=== PATIENT | female | born 1955 | race Caucasian/White ===

== ENCOUNTER 2017-04-02 18:00 | Emergency (ER) | payer MEDICARE, MEDICAID ==
[~2017-04-02] VITALS: Ht 160 cm; Wt 63.0 kg
[~2017-04-02 18:00] MED LIST: ACTI200C PO; DICY10CA3 PO; GOJI BERRY PO; HYDR-3240 PO; S-AD400T3 PO; [UNRECOGNIZED DRUG - OTHER] PO
[2017-04-02] MEDS ORDERED: ASPIRIN 81 MG TABLET CHEW ONE (18:17)
[2017-04-02] MEDS ORDERED: ASPIRIN 81 MG TABLET CHEW PO ONE (18:30)
[2017-04-02 18:41] LABS: BLOOD UREA NITROGEN 12 mg/dL (7-18)
[2017-04-02 18:47] LABS: IS PT STATUS REG ER OR PRE ER? YES
[2017-04-02] MEDS ORDERED: ACETAMINOPHEN 325 MG TABLET ONE (19:16)
[2017-04-02] MEDS ORDERED: ACETAMINOPHEN 325 MG TABLET PO ONE (19:30)
[2017-04-02 20:15] VITALS: BP 132/82
== END 2017-04-02 20:31 | disposition home or self-care (01) ==
LOC: ED 20:07
DX: R07.89 Other chest pain (principal); Z90.49 Acquired absence of other specified parts of digestive tract
CPT/HCPCS: 36415; 71010; 80048; 82040; 84443; 84484; 85025; 85379; 93005; 99285

== ENCOUNTER 2017-06-28 12:49 | Emergency (ER) | payer MEDICARE, MEDICAID ==
[~2017-06-28] VITALS: Ht 160 cm; Wt 64.5 kg
[2017-06-28] MEDS ORDERED: MAALOX/HYOSCYAMINE/LIDOCAINE 45 ML BTL PO ONE (13:30)
[2017-06-28] MEDS ORDERED: ONDANSETRON ODT 4 MG PO ONE (13:30)
[2017-06-28 13:42] LABS: HEMATOCRIT 46.1 % (34.6-47.8); HEMOGLOBIN 15.4 g/dL (11.7-16.4); WHITE BLOOD COUNT 7.8 x10^3/uL (3.4-10)
[2017-06-28] MEDS ORDERED: MAALOX/HYOSCYAMINE/LIDOCAINE 45 ML BTL ONE (13:47)
[2017-06-28] MEDS ORDERED: ONDANSETRON ODT 4 MG ONE (13:47)
[2017-06-28 13:51] LABS: ASPARTATE AMINO TRANSFERASE 12 U/L (15-37); BLOOD UREA NITROGEN 10 mg/dL (7-18)
[2017-06-28 13:57] LABS: IS PT STATUS REG ER OR PRE ER? YES
[2017-06-28 15:03] VITALS: BP 115/74
== END 2017-06-28 15:05 | disposition home or self-care (01) ==
LOC: ED 13:32
DX: K29.00 Acute gastritis without bleeding (principal); G89.29 Other chronic pain; Z90.49 Acquired absence of other specified parts of digestive tract
CPT/HCPCS: 36415; 80053; 81003; 83690; 84484; 85025; 93005; 99285; Q0162

== ENCOUNTER 2021-01-18 19:10 | Emergency (ER) | payer MEDICARE, MEDICAID ==
[~2021-01-18] VITALS: Ht 160 cm; Wt 70.1 kg
[~2021-01-18 19:10] MED LIST changes: +HYDR-2214 PO; -HYDR-3240 PO
[2021-01-18 20:43] LABS: MEAN CORPUSCULAR HEMOGLOBIN 29.4 pg (27.0-34.8); MEAN CORPUSCULAR HGB CONC 33.5 g/dL (32.4-35.8); MEAN PLATELET VOLUME 8.1 fL (7.4-10.4); PLATELET COUNT 207 x10^3/uL (130-400)
[2021-01-18 20:50] LABS: ALANINE AMINOTRANSFERASE 24 U/L (12-78); ALBUMIN 4.2 g/dL (3.4-5.0); ANION GAP 5 mmol/L (5-15); CALCIUM 8.2 mg/dL (8.5-10.1); CHLORIDE 110 mmol/L (98-107)
[2021-01-18 20:53] LABS: ALKALINE PHOSPHATASE 62 U/L (45-117); BILIRUBIN,TOTAL 0.5 mg/dL (0.2-1.0); CREATININE 0.97 mg/dL (0.55-1.02); TOTAL PROTEIN 7.4 g/dL (6.4-8.2)
[2021-01-18 21:02] LABS: MD YES
[2021-01-18 21:07] LABS: BAND#(MANUAL) 0.22 x10^3/uL; BANDS%(MANUAL) 7 % (0-7); EOS#(MANUAL) 0.03 x10^3/uL (0.0-0.4); EOS% (MANUAL) 1 % (1-7); LYMPH#(MANUAL) 1.34 x10^3/uL (1-3.4); LYMPHS% (MANUAL) 42 % (22-44); MONOS#(MANUAL) 0.26 x10^3/uL (0.3-2.7); MONOS% (MANUAL) 8 % (2-9); REACTIVE LYMPHS # (MANUAL) 0.03 x10^3/uL (0-0); REACTIVE LYMPHS % (MANUAL) 1 % (0-0); SEG#(MANUAL) 1.31 x10^3/uL (1.8-6.8); SEGS% (MANUAL) 41 % (42-75)
[2021-01-18 21:08] LABS: <PLATELET ESTIMATE> ADEQUATE; <PLT MORPHOLOGY> NORMAL PLT MORPH; <RBC MORPHOLOGY> NORMAL
--- NOTE | 2021-01-18 23:30 | NUR ---
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
--- NOTE | 2021-01-18 23:55 | NUR ---
PT C/O "SWEATING A LOT" X 2 WEEKS. CHILLS, POOR APPETITE, LOSS OF TASTE/SMELL
[2021-01-19 00:13] VITALS: BP 152/78
--- NOTE | 2021-01-19 00:14 | NUR ---
ERP AT BEDSIDE FOR EXAM/COVID SWAB
[2021-01-19] MEDS ORDERED: ONDANSETRON ODT 4 MG ONE (00:25)
[2021-01-19] MEDS ORDERED: IBUPROFEN 600 MG TABLET ONE (00:25)
[2021-01-19] MEDS ORDERED: ACETAMINOPHEN 500 MG TABLET ONE (00:25)
[2021-01-19] MEDS ORDERED: ONDANSETRON ODT 4 MG PO ONE (00:30)
[2021-01-19] MEDS ORDERED: IBUPROFEN 600 MG TABLET PO ONE (00:30)
[2021-01-19] MEDS ORDERED: ACETAMINOPHEN 500 MG TABLET PO ONE (00:30)
--- NOTE | 2021-01-19 01:13 | NUR ---
pain improved to 3/10 patient educated on sxs to watch for worsening viral sxs teach back successful provided with taxi voucher
== END 2021-01-19 01:14 | disposition home or self-care (01) ==
LOC: ED 21:28
DX: U07.1 COVID-19 (principal); B34.9 Viral infection, unspecified; R50.9 Fever, unspecified; R07.89 Other chest pain; Z90.49 Acquired absence of other specified parts of digestive tract
CPT/HCPCS: 36415; 71045; 80053; 83690; 85025; 93005; 99285; Q0162; U0003